=== PATIENT | female | born 1960 | race Caucasian/White ===

== ENCOUNTER 2016-11-07 19:15 | Emergency (ER) | payer OTHER ==
--- NOTE | 2016-11-07 20:49 | ED ORDER SUMMARY ---
..... Patient: DASHA FISHMAN OrderSheet [facility] VisitID: [id number] [place] [address] 56y, F Registration Date/Time: 11/07/2016 ORDER SHEET Weight: 102.0 kg (stated) Allergies: Ibuprofen GENERAL ORDERS: UA-Culture if indicated Urgent (19:11/07/2016 Lidia ROQUE) (Ack 19:35 Anmol) (21:05 Kailyn R.N.) Urine Drug Screen Urgent (19:28 11/07/2016 Lidia ROQUE) (Ack 19:35 Anmol) (21:05 Kailyn R.N.) Breathalyzer (:28 11/07/2016 Lidia ROQUE) (Ack 19:42 Kailyn R.N.) (19:43 RKaruga) MEDICATION ORDERS: IV FLUIDS: ORDER SHEET NOTES: [Electronically signed by Nahomi Roca R.N. (21:11 11/07/2016)] [Electronically signed by Romario Francis MD (21:29 11/08/2016)] [Electronically locked/signed by Nahomi Roca R.N. (21:11/07/2016)]
--- NOTE | 2016-11-07 20:49 | ED NURSING NOTES ---
Clinical Report - Nurses [address] [place] [address] 11/07/2016 19:18 Patient: DASHA FISHMAN TRIAGE Triage time 19:19. Acuity: LEVEL 4. Chief Complaint: (took THC edibles (10mg) pt usually uses less THC). Alert. --19:24 Nahomi Roca R.N. 19:19 11/07/16. BP: 140/68. HR: 85. RR: 20. O2 saturation: 100% on room air. Pain level now: 0/10. --19:24 Nahomi Roca R.N. Weight: 102 kg stated. Height/Length: 60.5 inches Per Patient. BMI: 43.2. --19:23 Nahomi Roca R.N. Medications Atorvastatin Calcium Oral. --19:21 Nahomi Roca R.N. BusPIRone HCl Oral. --19:21 Nahomi Roca R.N. Cyclobenzaprine HCl Oral. --19:21 Nahomi Roca R.N. DULoxetine HCl Oral. --19:21 Nahomi Roca R.N. Gabapentin Oral. --19:21 Nahomi Roca R.N. Lisinopril Oral. --19:21 Nahomi Roca R.N. LORazepam Oral. --19:22 Nahomi Roca R.N. MetFORMIN HCl Oral. --19:22 Nahomi Roca R.N. Metoprolol Tartrate Oral. --19:22 Nahomi Roca R.N. Zovirax Oral. --19:22 Nahomi Roca R.N. Allergies Ibuprofen. --19:22 Nahomi Roca R.N. History Arrived by EMS. Historian: patient. Primary physician (October). This started today. 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 PAST MEDICAL HX: Immunizations: up-to-date. SOCIAL HX: Never smoker. Occasional alcohol use. History of drug use: marijuana. NUTRITIONAL RISK ASSESSMENT: The nutritional risk assessment revealed no deficiencies. FUNCTIONAL ASSESSMENT: Functional assessment: no impairments noted. --: Nahomi Roca R.N. PROBLEMS: Diabetes Mellitus Type 2. Fibromyalgia. Anxiety Reaction. --: Nahomi Roca R.N. Back Pain. --19: Nahomi Roca R.N. ADDITIONAL SURGERIES: Tonsillectomy. Tubal Ligation. --: Nahomi Roca R.N. Interventions ID band on patient. To treatment room. --: Nahomi Roca R.N. PHYSICAL ASSESSMENT To room via stretcher. Patient gowned. GENERAL / NEURO / PSYCH: Alert. Oriented X 4. Appears in no acute distress. HEENT: Mucous membranes are pink. RESPIRATORY: Respirations not labored. CVS: Capillary refill less than 2 seconds. SKIN: Skin is warm and dry. --19:25 Nahomi Roca R.N. NURSING PROGRESS NOTES Head of bed elevated. Two patient identifiers checked. Call light placed in reach. Side rails up x 2. Bed placed in lowest position. Brakes of bed on. --19:25 Nahomi Roca R.N. ( urine sample requested, pt unable to go now. States she hasn't had anything to eat or drink and will need water first. Pt informed that the MD needs to evaluate her before she drinks anything.). --19:44 Nahomi Roca R.N. ( breathalyzer .00%). --19:44 [facility] ( Pt repositioned for pt comfort. Pt assisted to move to laying on left side with pillow between legs and warm blanket placed on pt.). --20:03 Nahomi Roca R.N. ( pt given wet mouth swab for complaint of dry mouth.). --20:04 Nahomi Roca R.N. 20:30 11/07/16. BP: 107/86. HR: 86. RR: 15. O2 saturation: 100% on room air. --20:31 Nahomi Roca R.N. 20:50 Assisted to restroom and back to bed by [facility]. --20:50 Fredi Degroot R.N. 20:50. Patient ID band checked for patient name and birthdate: patient confirmed. Clean catch urine collected with return of yellow-colored clear urine; sample sent to lab for urinalysis and drug screen. Specimen labeled in the presence of the patient. --20:50 Fredi Degroot R.N. DISPOSITION / DISCHARGE 21:00 11/07/16. BP: 120/61. HR: 67. RR: 15. O2 saturation: 100% on room air. Temp: deferred. Sims-Haywood pain scale: 2/10. --21:01 Nahomi Roca R.N. Condition at departure: stable. No learning barriers present. Discharge instructions provided and reviewed with the patient. Patient verbalized understanding. Written instructions provided in Japanese. The patient was discharged home and accompanied by family and pt will wait in waiting room for family member to arrive for ride home. She left the Emergency Department ambulatory and via private vehicle. Family member driving. --21:01 Nahomi Roca R.N. ( pt using hospital walker to get to lobby and into car.). --21:03 Nahomi Roca R.N. Locked/Released at 11/07/2016 21:11 by Nahomi Roca R.N.
--- NOTE | 2016-11-07 20:49 | ED CLINICAL REPORT ---
Clinical Report - Physicians/Mid Levels [facility] [address] [place] [address] 11/07/2016 19:18 Patient: DASHA FISHMAN Time Seen: 19:28. Arrived- By ambulance. Historian- patient and EMS personnel. HISTORY OF PRESENT ILLNESS Chief Complaint: "I took too much marijuana". This started today and is still present but is improving. It was gradual in onset and has been constant. (She says that she ate a 10 mg marijuana candy earlier and that it was much stronger than she is used to. She feels strange and says that this "hit me harder" than usual. She purchased the candy at a state sanctioned dispensary. She denies using any other drugs or alcohol. 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 REVIEW OF SYSTEMS No diarrhea, nausea, vomiting, urinary problems or chills. No fever, sweats, calf pain, chest pain or cough. No difficulty breathing, pedal edema, palpitations, abdominal pain or constipation. All systems otherwise negative, except as recorded above. PAST HISTORY Problems: Back Pain. Diabetes Mellitus Type 2. Fibromyalgia. Anxiety Reaction. Additional Surgeries: Tubal Ligation. Medications: Zovirax Oral. Metoprolol Tartrate Oral. MetFORMIN HCl Oral. LORazepam Oral. Lisinopril Oral. Gabapentin Oral. DULoxetine HCl Oral. Cyclobenzaprine HCl Oral. BusPIRone HCl Oral. Atorvastatin Calcium Oral. Allergies: Ibuprofen. SOCIAL HISTORY Never smoker. Occasional alcohol use. History of drug use: marijuana. Recently used drugs just prior to arrival. Under influence in ED. FAMILY HISTORY Denies family medical history. ADDITIONAL NOTES The nursing notes have been reviewed. PHYSICAL EXAM Vital Signs: 11/07/2016 19:19 BP: 140/68. HR: 85. RR: 20. O2 saturation: 100%. Pain level now: 0/10. Have been reviewed. Appearance: Alert. Eyes: Pupils equal, round and reactive to light. Mild redness of the right conjunctiva; mild redness of the left conjunctiva. ENT: Pharynx normal. Neck: Normal inspection. Neck supple. CVS: Normal heart rate and rhythm. Heart sounds normal. Respiratory: No respiratory distress. Breath sounds normal. Abdomen: No visible injury. Soft and nontender. Bowel sounds normal. No organomegaly. No mass. Back: Normal inspection. No CVA tenderness. Skin: Skin warm and dry. Normal skin color. Normal skin turgor. Extremities: Extremities exhibit normal ROM. No calf tenderness. No lower extremity edema. PROGRESS AND PROCEDURES Course of Care: Patient is stable. Patient/family counseled. Old medical records reviewed. Disposition: Discharged. Condition: stable. CLINICAL IMPRESSION Occasional substance abuse- marijuana. INSTRUCTIONS No driving or operating machinery. Warnings: GENERAL WARNINGS: Return or contact your physician immediately if your condition worsens or changes unexpectedly, if not improving as expected, or if other problems arise. Your Current Medications: CONTINUE TAKING THE FOLLOWING MEDICATIONS: Atorvastatin Calcium Oral. BusPIRone HCl Oral. Cyclobenzaprine HCl Oral. DULoxetine HCl Oral. Gabapentin Oral. Lisinopril Oral. LORazepam Oral. MetFORMIN HCl Oral. Metoprolol Tartrate Oral. Zovirax Oral. Follow-up: Follow up with your doctor as scheduled. Understanding of the discharge instructions verbalized by patient. (Electronically signed by Romario Francis MD 11/08/2016 21:29) Addenda for DASHA FISHMAN VisitID: [id number] Date: 11/07/2016 11/08/2016 18:36 contacted pt re: urine culture; at pt request rx will be called to [facility] in [place] for Macrobid 100 mg, 1 po q 12 hours, #14; per Ankita SANCHEZ (Electronically signed by Debo Stacy R.N. - 11/08/2016 18:36)
--- NOTE | 2016-11-07 20:49 | ED ORDER SUMMARY ---
..... Patient: DASHA FISHMAN OrderSheet [facility] VisitID: [id number] [place] [address] 56y, F Registration Date/Time: 11/07/2016 ORDER SHEET Weight: 102.0 kg (stated) Allergies: Ibuprofen GENERAL ORDERS: UA-Culture if indicated Urgent (19:11/07/2016 Lidia ROQUE) (Ack 19:35 Anmol) (21:05 Kailyn R.N.) Urine Drug Screen Urgent (19:28 11/07/2016 Lidia ROQUE) (Ack 19:35 Anmol) (21:05 Kailyn R.N.) Breathalyzer (:28 11/07/2016 Lidia ROQUE) (Ack 19:42 Kailyn R.N.) (19:43 RKaruga) MEDICATION ORDERS: IV FLUIDS: ORDER SHEET NOTES: [Electronically signed by Nahomi Roca R.N. (21:11 11/07/2016)] [Electronically signed by Romario Francis MD (21:29 11/08/2016)] [Electronically locked/signed by Nahomi Roca R.N. (21:11/07/2016)]
--- NOTE | 2016-11-07 20:49 | ED NURSING NOTES ---
Clinical Report - Nurses [address] [place] [address] 11/07/2016 19:18 Patient: DASHA FISHMAN TRIAGE Triage time 19:19. Acuity: LEVEL 4. Chief Complaint: (took THC edibles (10mg) pt usually uses less THC). Alert. --19:24 Nahomi Roca R.N. 19:19 11/07/16. BP: 140/68. HR: 85. RR: 20. O2 saturation: 100% on room air. Pain level now: 0/10. --19:24 Nahomi Roca R.N. Weight: 102 kg stated. Height/Length: 60.5 inches Per Patient. BMI: 43.2. --19:23 Nahomi Roca R.N. Medications Atorvastatin Calcium Oral. --19:21 Nahomi Roca R.N. BusPIRone HCl Oral. --19:21 Nahomi Roca R.N. Cyclobenzaprine HCl Oral. --19:21 Nahomi Roca R.N. DULoxetine HCl Oral. --19:21 Nahomi Roca R.N. Gabapentin Oral. --19:21 Nahomi Roca R.N. Lisinopril Oral. --19:21 Nahomi Roca R.N. LORazepam Oral. --19:22 Nahomi Roca R.N. MetFORMIN HCl Oral. --19:22 Nahomi Roca R.N. Metoprolol Tartrate Oral. --19:22 Nahomi Roca R.N. Zovirax Oral. --19:22 Nhaomi Roca R.N. Allergies Ibuprofen. --19:22 Nahomi Roca R.N. History Arrived by EMS. Historian: patient. Primary physician (October). This started today. 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 PAST MEDICAL HX: Immunizations: up-to-date. SOCIAL HX: Never smoker. Occasional alcohol use. History of drug use: marijuana. NUTRITIONAL RISK ASSESSMENT: The nutritional risk assessment revealed no deficiencies. FUNCTIONAL ASSESSMENT: Functional assessment: no impairments noted. --: Nahomi Roca R.N. PROBLEMS: Diabetes Mellitus Type 2. Fibromyalgia. Anxiety Reaction. --: Nahomi Roca R.N. Back Pain. --19: Nahomi Roca R.N. ADDITIONAL SURGERIES: Tonsillectomy. Tubal Ligation. --: Nahomi Roca R.N. Interventions ID band on patient. To treatment room. --: Nahomi Roca R.N. PHYSICAL ASSESSMENT To room via stretcher. Patient gowned. GENERAL / NEURO / PSYCH: Alert. Oriented X 4. Appears in no acute distress. HEENT: Mucous membranes are pink. RESPIRATORY: Respirations not labored. CVS: Capillary refill less than 2 seconds. SKIN: Skin is warm and dry. --19:25 Nahomi Roca R.N. NURSING PROGRESS NOTES Head of bed elevated. Two patient identifiers checked. Call light placed in reach. Side rails up x 2. Bed placed in lowest position. Brakes of bed on. --19:25 Nahomi Roca R.N. ( urine sample requested, pt unable to go now. States she hasn't had anything to eat or drink and will need water first. Pt informed that the MD needs to evaluate her before she drinks anything.). --19:44 Nahomi Roca R.N. ( breathalyzer .00%). --19:44 [facility] ( Pt repositioned for pt comfort. Pt assisted to move to laying on left side with pillow between legs and warm blanket placed on pt.). --20:03 Nahomi Roca R.N. ( pt given wet mouth swab for complaint of dry mouth.). --20:04 Nahomi Roca R.N. 20:30 11/07/16. BP: 107/86. HR: 86. RR: 15. O2 saturation: 100% on room air. --20:31 Nahomi Roca R.N. 20:50 Assisted to restroom and back to bed by [facility] [place]. --20:50 Fredi Degroot R.N. 20:50. Patient ID band checked for patient name and birthdate: patient confirmed. Clean catch urine collected with return of yellow-colored clear urine; sample sent to lab for urinalysis and drug screen. Specimen labeled in the presence of the patient. --20:50 Fredi Degroot R.N. DISPOSITION / DISCHARGE 21:00 11/07/16. BP: 120/61. HR: 67. RR: 15. O2 saturation: 100% on room air. Temp: deferred. Sims-Haywood pain scale: 2/10. --21:01 Nahomi Roca R.N. Condition at departure: stable. No learning barriers present. Discharge instructions provided and reviewed with the patient. Patient verbalized understanding. Written instructions provided in Arabic. The patient was discharged home and accompanied by family and pt will wait in waiting room for family member to arrive for ride home. She left the Emergency Department ambulatory and via private vehicle. Family member driving. --21:01 Nahomi Roca R.N. ( pt using hospital walker to get to lobby and into car.). --21:03 Nahomi Roca R.N. Locked/Released at 11/07/2016 21:11 by Nahomi Roca R.N.
--- NOTE | 2016-11-07 20:49 | ED CLINICAL REPORT ---
Clinical Report - Physicians/Mid Levels [facility] [address] [place] [address] 11/07/2016 19:18 Patient: DASHA FISHMAN Time Seen: 19:28. Arrived- By ambulance. Historian- patient and EMS personnel. HISTORY OF PRESENT ILLNESS Chief Complaint: "I took too much marijuana". This started today and is still present but is improving. It was gradual in onset and has been constant. (She says that she ate a 10 mg marijuana candy earlier and that it was much stronger than she is used to. She feels strange and says that this "hit me harder" than usual. She purchased the candy at a state sanctioned dispensary. She denies using any other drugs or alcohol. 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 REVIEW OF SYSTEMS No diarrhea, nausea, vomiting, urinary problems or chills. No fever, sweats, calf pain, chest pain or cough. No difficulty breathing, pedal edema, palpitations, abdominal pain or constipation. All systems otherwise negative, except as recorded above. PAST HISTORY Problems: Back Pain. Diabetes Mellitus Type 2. Fibromyalgia. Anxiety Reaction. Additional Surgeries: Tubal Ligation. Medications: Zovirax Oral. Metoprolol Tartrate Oral. MetFORMIN HCl Oral. LORazepam Oral. Lisinopril Oral. Gabapentin Oral. DULoxetine HCl Oral. Cyclobenzaprine HCl Oral. BusPIRone HCl Oral. Atorvastatin Calcium Oral. Allergies: Ibuprofen. SOCIAL HISTORY Never smoker. Occasional alcohol use. History of drug use: marijuana. Recently used drugs just prior to arrival. Under influence in ED. FAMILY HISTORY Denies family medical history. ADDITIONAL NOTES The nursing notes have been reviewed. PHYSICAL EXAM Vital Signs: 11/07/2016 19:19 BP: 140/68. HR: 85. RR: 20. O2 saturation: 100%. Pain level now: 0/10. Have been reviewed. Appearance: Alert. Eyes: Pupils equal, round and reactive to light. Mild redness of the right conjunctiva; mild redness of the left conjunctiva. ENT: Pharynx normal. Neck: Normal inspection. Neck supple. CVS: Normal heart rate and rhythm. Heart sounds normal. Respiratory: No respiratory distress. Breath sounds normal. Abdomen: No visible injury. Soft and nontender. Bowel sounds normal. No organomegaly. No mass. Back: Normal inspection. No CVA tenderness. Skin: Skin warm and dry. Normal skin color. Normal skin turgor. Extremities: Extremities exhibit normal ROM. No calf tenderness. No lower extremity edema. PROGRESS AND PROCEDURES Course of Care: Patient is stable. Patient/family counseled. Old medical records reviewed. Disposition: Discharged. Condition: stable. CLINICAL IMPRESSION Occasional substance abuse- marijuana. INSTRUCTIONS No driving or operating machinery. Warnings: GENERAL WARNINGS: Return or contact your physician immediately if your condition worsens or changes unexpectedly, if not improving as expected, or if other problems arise. Your Current Medications: CONTINUE TAKING THE FOLLOWING MEDICATIONS: Atorvastatin Calcium Oral. BusPIRone HCl Oral. Cyclobenzaprine HCl Oral. DULoxetine HCl Oral. Gabapentin Oral. Lisinopril Oral. LORazepam Oral. MetFORMIN HCl Oral. Metoprolol Tartrate Oral. Zovirax Oral. Follow-up: Follow up with your doctor as scheduled. Understanding of the discharge instructions verbalized by patient. (Electronically signed by Romario Francis MD 11/08/2016 21:29) Addenda for DASHA FISHMAN VisitID: [id number] Date: 11/07/2016 11/08/2016 18:36 contacted pt re: urine culture; at pt request rx will be called to [facility] in [place] Pt for Macrobid 100 mg, 1 po q 12 hours, #14; per Ankita SANCHEZ (Electronically signed by Debo Stacy R.N. - 11/08/2016 18:36)
--- NOTE | 2016-11-08 21:29 | ED MAR SUMMARY ---
..... Medication Administration Record [facility] [address] [place], [place] [id number] Patient: DASHA FISHMAN Lizeth Visit ID: [id number] 56y, F Weight: 102.0 kg Height/Length: 60.5 in BMI: 43.2 ALLERGIES: Ibuprofen
--- NOTE | 2016-11-08 21:29 | ED MAR SUMMARY ---
..... Medication Administration Record [facility] [address] [place], [place] [id number] Patient: DASHA FISHMAN Lizeth Visit ID: [id number] 56y, F Weight: 102.0 kg Height/Length: 60.5 in BMI: 43.2 ALLERGIES: Ibuprofen
--- NOTE | 2016-11-08 21:29 | ED MED RECONCILIATION SUMMARY ---
Patient: CAITLIN FISHMANA Lizeth Medication Reconciliation Report [facility] VisitID: [id number] [address] [place] [address] 56y, F Registration Date/Time: 11/07/2016 Weight: 102.0 kg Height/Length: 60 in. BMI: 43.2 ALLERGIES: Ibuprofen The patient's Home Medications are listed below: CONTINUE TAKING THE FOLLOWING MEDICATIONS: Atorvastatin Calcium Oral BusPIRone HCl Oral Cyclobenzaprine HCl Oral DULoxetine HCl Oral Gabapentin Oral Lisinopril Oral LORazepam Oral MetFORMIN HCl Oral Metoprolol Tartrate Oral Zovirax Oral The source(s) of the original Home Medication information: Not obtained. The following Medications were given to the patient in the Emergency Department: None. The following Medications were prescribed to the patient: None.
--- NOTE | 2016-11-08 21:29 | ED DISCHARGE INSTRUCTIONS ---
Patient: DASHA FISHMAN General Instructions [facility] VisitID: [id number] [place] [address] 56y, F Registration Date/Time: 11/07/2016 Occasional substance abuse- marijuana. INSTRUCTIONS No driving or operating machinery. Warnings: GENERAL WARNINGS: Return or contact your physician immediately if your condition worsens or changes unexpectedly, if not improving as expected, or if other problems arise. Your Current Medications: CONTINUE TAKING THE FOLLOWING MEDICATIONS: Atorvastatin Calcium Oral. BusPIRone HCl Oral. Cyclobenzaprine HCl Oral. DULoxetine HCl Oral. Gabapentin Oral. Lisinopril Oral. LORazepam Oral. MetFORMIN HCl Oral. Metoprolol Tartrate Oral. Zovirax Oral. Follow-up: Follow up with your doctor as scheduled. Understanding of the discharge instructions verbalized by patient. ADDITIONAL INFORMATION Marijuana Abuse Marijuana is the most widely used illegal drug in the [place]. It is called by various names such as pot, weed, blunts, grass, reefer, ganja, hash, hashish. It is usually smoked but can be mixed with foods or brewed as a tea. It is sometimes sold with PCP (Mark Dust) or amphetamine mixed in it. These drugs can cause other harmful side effects. Marijuana can cause the following effects: Changes in mood (stimulated, happy, drowsy, depressed, paranoid) Hallucinations Increased heart rate and blood pressure Increased appetite Time distortion, difficulty concentrating, impaired memory Lung damage (similar to cigarettes with chronic cough, wheezing, frequent colds and bronchitis) You can become psychologically dependent on marijuana. That means the craving to use the drug is emotional or psychological rather than due to physical withdrawal. Is Marijuana Running Your Life? Here are some of the signs: Relying on marijuana to feel good, forget problems, deal with stress or to relax Wanting to be alone most of the time or only with others who use drugs Losing interest in things that used to be important Changes in school or job performance or attendance Spending a lot of time thinking about how to get marijuana Stealing or selling your things so you can buy marijuana Unable to stop using even though you may want to quit Increasing anxiety, anger,or depression Sleeping too much, changes in eating habits (weight loss or gain) Needing to use more to get the same effect Home Care Once you have become addicted to any drug, quitting is hard to do. Most people find they can't quit without help. So, dont try to do this alone. Talk to someone you trust who can support you. Seek professional help. Avoid people and places where drugs are used. That only increases the temptation to use. Follow Up with your doctor or as advised by our staff. For more information or a referral to a treatment center in your area, contact: Your local mental health center or the National Alcohol and Substance Abuse Information Center (930)-319-7738 www.addictioncareoptions.com National [place] on Alcoholism and Drug Dependence 749-386-MPLH www.ncadd.org Marijuana Anonymous 594-587-6690 www.marijuana-anonymous.org Get Prompt Medical Attention if any of the following occur: You feel extreme depression, fear, anxiety, or anger toward yourself or others You feel out of control You feel that you may try to harm yourself or another You have been given the following additional information: Marijuana Abuse No driving or operating machinery. (Electronically signed by Romario Francis MD 11/08/2016 21:29)
--- NOTE | 2016-11-08 21:29 | ED MED RECONCILIATION SUMMARY ---
Patient: CAITLIN FISHMANA Lizeth Medication Reconciliation Report [facility] VisitID: [id number] [address] [place] [address] 56y, F Registration Date/Time: 11/07/2016 Weight: 102.0 kg Height/Length: 60 in. BMI: 43.2 ALLERGIES: Ibuprofen The patient's Home Medications are listed below: CONTINUE TAKING THE FOLLOWING MEDICATIONS: Atorvastatin Calcium Oral BusPIRone HCl Oral Cyclobenzaprine HCl Oral DULoxetine HCl Oral Gabapentin Oral Lisinopril Oral LORazepam Oral MetFORMIN HCl Oral Metoprolol Tartrate Oral Zovirax Oral The source(s) of the original Home Medication information: Not obtained. The following Medications were given to the patient in the Emergency Department: None. The following Medications were prescribed to the patient: None.
--- NOTE | 2016-11-08 21:29 | ED DISCHARGE INSTRUCTIONS ---
Patient: DASHA FISHMAN General Instructions [facility] VisitID: [id number] [place] [address] 56y, F Registration Date/Time: 11/07/2016 Occasional substance abuse- marijuana. INSTRUCTIONS No driving or operating machinery. Warnings: GENERAL WARNINGS: Return or contact your physician immediately if your condition worsens or changes unexpectedly, if not improving as expected, or if other problems arise. Your Current Medications: CONTINUE TAKING THE FOLLOWING MEDICATIONS: Atorvastatin Calcium Oral. BusPIRone HCl Oral. Cyclobenzaprine HCl Oral. DULoxetine HCl Oral. Gabapentin Oral. Lisinopril Oral. LORazepam Oral. MetFORMIN HCl Oral. Metoprolol Tartrate Oral. Zovirax Oral. Follow-up: Follow up with your doctor as scheduled. Understanding of the discharge instructions verbalized by patient. ADDITIONAL INFORMATION Marijuana Abuse Marijuana is the most widely used illegal drug in the [place]. It is called by various names such as pot, weed, blunts, grass, reefer, ganja, hash, hashish. It is usually smoked but can be mixed with foods or brewed as a tea. It is sometimes sold with PCP (Mark Dust) or amphetamine mixed in it. These drugs can cause other harmful side effects. Marijuana can cause the following effects: Changes in mood (stimulated, happy, drowsy, depressed, paranoid) Hallucinations Increased heart rate and blood pressure Increased appetite Time distortion, difficulty concentrating, impaired memory Lung damage (similar to cigarettes with chronic cough, wheezing, frequent colds and bronchitis) You can become psychologically dependent on marijuana. That means the craving to use the drug is emotional or psychological rather than due to physical withdrawal. Is Marijuana Running Your Life? Here are some of the signs: Relying on marijuana to feel good, forget problems, deal with stress or to relax Wanting to be alone most of the time or only with others who use drugs Losing interest in things that used to be important Changes in school or job performance or attendance Spending a lot of time thinking about how to get marijuana Stealing or selling your things so you can buy marijuana Unable to stop using even though you may want to quit Increasing anxiety, anger,or depression Sleeping too much, changes in eating habits (weight loss or gain) Needing to use more to get the same effect Home Care Once you have become addicted to any drug, quitting is hard to do. Most people find they can't quit without help. So, dont try to do this alone. Talk to someone you trust who can support you. Seek professional help. Avoid people and places where drugs are used. That only increases the temptation to use. Follow Up with your doctor or as advised by our staff. For more information or a referral to a treatment center in your area, contact: Your local mental health center or the National Alcohol and Substance Abuse Information Center (102)-345-8323 www.addictioncareoptions.com National [place] on Alcoholism and Drug Dependence 274-340-FMMU www.ncadd.org Marijuana Anonymous 597-223-9347 www.marijuana-anonymous.org Get Prompt Medical Attention if any of the following occur: You feel extreme depression, fear, anxiety, or anger toward yourself or others You feel out of control You feel that you may try to harm yourself or another You have been given the following additional information: Marijuana Abuse No driving or operating machinery. (Electronically signed by Romario Francis MD 11/08/2016 21:29)
== END 2016-11-07 21:00 | disposition home or self-care (01) ==
LOC: ED SRH 19:15
DX: F12.10 Cannabis abuse, uncomplicated (principal); E11.9 Type 2 diabetes mellitus without complications; Z79.84 Long term (current) use of oral hypoglycemic drugs; Z79.899 Other long term (current) drug therapy
CPT/HCPCS: 90004; 90148; 90469; 92760; 92761; 92762; 92763; 92764; 92765; 92766; 92767